=== PATIENT | male | born 1935 | race Caucasian/White ===

== ENCOUNTER → 2019-09-24 | Outpatient (CLI) | payer OTHER, MEDICARE | LOC: SJCVC 10:43 | DX: R94.31 Abnormal electrocardiogram [ECG] [EKG] (principal); I44.0 Atrioventricular block, first degree; I51.7 Cardiomegaly; I49.5 Sick sinus syndrome; I95.1 Orthostatic hypotension; R60.9 Edema, unspecified ==

== ENCOUNTER → 2020-03-29 | Outpatient (CLI) | payer OTHER, MEDICARE ==
[~2020-03-29] MED LIST: ADULT LOW DOSE81 MG PO; ANDROGEL1.25 GM TD; ANDROGEL150 GM; BAYER CHEWABLE81 MG PO; CENTRUM COMPLE1 EACH PO; CHOLEST OFF PL450 MG PO; FLOMAX0.4 MG PO; GLUCOSAMINE &1 EAC1 PO; KEFLEX250 MG PO; PROSCAR 5MG TABL5 MG PO; VITAMIN D-32000 UNIT PO
== END ==
LOC: SJCVC 09:28
PROVIDERS: ATTEND Internal Medicine Cardiovascular Disease
DX: R94.31 Abnormal electrocardiogram [ECG] [EKG] (principal); I95.1 Orthostatic hypotension; I10 Essential (primary) hypertension; R60.9 Edema, unspecified; Z95.0 Presence of cardiac pacemaker; Z79.899 Other long term (current) drug therapy

== ENCOUNTER → 2020-10-04 | Outpatient (CLI) | payer OTHER, MEDICARE | LOC: SJCVCIMAG 08:13 | PROVIDERS: ATTEND Internal Medicine Cardiovascular Disease | DX: I08.3 Combined rheumatic disorders of mitral, aortic and tricuspid valves (principal); I11.9 Hypertensive heart disease without heart failure; R94.31 Abnormal electrocardiogram [ECG] [EKG]; I49.5 Sick sinus syndrome; I95.1 Orthostatic hypotension; R41.3 Other amnesia; R60.9 Edema, unspecified; K21.9 Gastro-esophageal reflux disease without esophagitis; Z95.0 Presence of cardiac pacemaker; Z79.899 Other long term (current) drug therapy; Z90.49 Acquired absence of other specified parts of digestive tract; Z82.49 Family history of ischemic heart disease and other diseases of the circulatory system ==